=== PATIENT | male | born 1965 | race Caucasian/White ===

== ENCOUNTER 2017-01-07 20:10 | Emergency (ER) | payer BC, MEDICAID ==
[~2017-01-07] VITALS: Ht 182.9 cm; Wt 94.5 kg
[2017-01-07 20:24] VITALS: Ht 182.9 cm; Wt 94.5 kg
--- NOTE | 2017-01-07 22:04 | ERD ---
ER Documentation Chief Complaint Date/Time DATE: 01/07/17 TIME: 22:02 Chief Complaint pt reports blaze nail injury to r hand yesterdat HPI This is [id number] male presents to the emergency room for evaluation of right hand pain. This patient did state he stuck himself with a blaze nail yesterday. He denies any fevers or chills, and does not know his last tetanus shot was. The patient came to the ER for evaluation. Patient denies any numbness or tingling in his hand. ROS All systems reviewed and are negative except as per history of present illness. Medications Home Meds Discontinued Reported Medications [None] No Conflict Check 02/08/11 Allergies Allergies: Coded Allergies: No Known Allergy (Unverified , 01/07/17) PMhx/Soc Medical and Surgical Hx: pt denies Medical Hx History of Surgery: Yes ([facility]IP[facility] 2009) Anesthesia Reaction: No Hx Neurological Disorder: No Hx Respiratory Disorders: No Hx Cardiac Disorders: No Hx Psychiatric Problems: No Hx Miscellaneous Medical Probl: No Hx Alcohol Use: Yes Hx Substance Use: No Hx Tobacco Use: Yes Smoking Status: Current every day smoker Physical Exam Vitals Vital Signs Date Time Temp Pulse Resp B/P Pulse Ox O2 Delivery O2 Flow Rate FiO2 01/07/17 20:24 98.7 70 16 120/70 100 Physical Exam Const: No acute distress Head: Atraumatic Eyes: Normal Conjunctiva ENT: Normal External Ears, Nose and Mouth. Neck: Full range of motion..~ No meningismus. Resp: Clear to auscultation bilaterally Cardio: Regular rate and rhythm, no murmurs Abd: Soft, non tender, non distended. Normal bowel sounds Skin: Soft tissue swelling over the dorsal aspect of the right hand, no petechiae or rashes, full range of motion of the hand, cap refill less than 2 seconds, sensation intact Back: No midline or flank tenderness Ext: No cyanosis, or edema Neur: Awake and alert Psych: Normal Mood and Affect Procedures/MDM This 41-year-old male presents to the ER for evaluation of right hand pain after stabbing himself with a nail yesterday. When I evaluated the patient he did have mild soft tissue swelling of that area. The patient had tetanus shot updated in the emergency room and will be discharged home with Bactrim and Keflex. Departure Diagnosis: Primary Impression: Puncture wound, hand Additional Impression: Puncture wound of hand, right Condition: Stable SENIA KWON DO Jan 07, 2017 22:04
[2017-01-07] MEDS ORDERED: BACTDS PO (22:05)
[2017-01-07] MEDS ORDERED: CEPH-443 PO (22:05)
[2017-01-07] MEDS ORDERED: DIPHTH/TET/ACEL PERTUSS (ADULT) 0.5 ML VIAL IM* ONE (22:30)
== END 2017-01-07 22:35 | disposition home or self-care (01) ==
LOC: E/R 20:10
DX: S61.431A Puncture wound without foreign body of right hand, initial encounter (principal); F17.210 Nicotine dependence, cigarettes, uncomplicated; X58.XXXA Exposure to other specified factors, initial encounter; Y92.9 Unspecified place or not applicable
CPT/HCPCS: 90471; 90715

== ENCOUNTER 2017-02-11 00:06 | Emergency (ER) | payer SELFPAY ==
[~2017-02-11] VITALS: Ht 175.3 cm; Wt 90.0 kg
[~2017-02-11 00:06] MED LIST: BACTDS PO; CEPH-443 PO
[2017-02-11 00:11] VITALS: Ht 175.3 cm; Wt 90.0 kg
== END 2017-02-11 02:08 | disposition left against medical advice (07) ==
LOC: FTE 00:06 → E/R 02:08
DX: Z53.21 Procedure and treatment not carried out due to patient leaving prior to being seen by health care provider (principal)